=== PATIENT | female | born 1975 | race Caucasian/White ===

== ENCOUNTER → 2017-11-10 | Outpatient (CLI) | payer OTHER ==
[~2017-11-10] MED LIST: ALBU90OI6; BENZ100A; BUPRENORPHIN-N1 EACH; BUPRENORPHN-NA1 EACH; CEPH500 PO; CLIN300 PO; CLON1 PO; Cleocin HCl300 MG PO; DULO30 PO; HYDACE5 PO; HYDHCL25; HYDR1TAB94 PO; IBUP600 PO; IBUP800 PO; Norco 5-325 Ta1 EACH PO; Pepto-Bismol262 MG; QUET300 PO; RXHYDACE PO; SACC250C PO; Seroquel50 MG; TRAM50 PO; TUMS300 MG; Ultram50 MG PO
== END ==
LOC: LAB 13:38 → LAB SHORT 13:38
DX: F12.20 Cannabis dependence, uncomplicated (principal)
CPT/HCPCS: G0480

== ENCOUNTER → 2017-11-27 | Outpatient (CLI) | payer OTHER | LOC: LAB SRC 14:44 → LAB SHORT 14:44 | DX: F12.20 Cannabis dependence, uncomplicated (principal) | CPT/HCPCS: G0480 ==

== ENCOUNTER → 2018-01-08 | Outpatient (CLI) | payer OTHER | LOC: LAB 14:44 → LAB SHORT 14:44 | DX: F11.20 Opioid dependence, uncomplicated (principal) | CPT/HCPCS: G0480 ==

== ENCOUNTER → 2018-11-10 | Outpatient (CLI) | payer OTHER ==
[~2018-11-10] MED LIST changes: +Crutch1 EACH MISC
== END ==
LOC: LAB SHORT 17:16 → LAB 17:16
DX: L08.9 Local infection of the skin and subcutaneous tissue, unspecified (principal); L02.222 Furuncle of back [any part, except buttock and flank]; L70.0 Acne vulgaris; D22.5 Melanocytic nevi of trunk; D22.71 Melanocytic nevi of right lower limb, including hip
CPT/HCPCS: 87070; 87205

== ENCOUNTER → 2020-09-08 | Outpatient (CLI) | payer OTHER ==
[2020-09-09 08:29] LABS: Candida species (DNA Probe) Negative (NEGATIVE); G. vaginalis (DNA Probe) Positive (NEGATIVE); T. vaginalis (DNA Probe) Negative (NEGATIVE)
== END | disposition home or self-care (01) ==
LOC: LAB SHORT 14:00
PROVIDERS: Registered Nurse
DX: Z12.4 Encounter for screening for malignant neoplasm of cervix (principal); N89.8 Other specified noninflammatory disorders of vagina
CPT/HCPCS: 87480; 87510; 87660; G0123